=== PATIENT | male | born 1965 | race Caucasian/White ===

== ENCOUNTER 2018-08-28 11:25 | Emergency (ER) | payer OTHER ==
[2018-08-28] MEDS: KETOROLAC 30 MG INJ IM (12:26)
== END 2018-08-28 13:33 | disposition home or self-care (01) ==
LOC: FTE 11:25
DX: S39.012A Strain of muscle, fascia and tendon of lower back, initial encounter (principal); X58.XXXA Exposure to other specified factors, initial encounter; Y92.9 Unspecified place or not applicable
CPT/HCPCS: 96372; 99284-25